=== PATIENT | female | born 1965 | race Two or more races ===

== ENCOUNTER 2019-10-13 06:18 | Outpatient (CLI) | payer OTHER | END 2019-10-13 06:22 | disposition home or self-care (01) | LOC: LAB 06:18 | DX: D50.8 Other iron deficiency anemias (principal); E03.8 Other specified hypothyroidism; E78.2 Mixed hyperlipidemia; N95.1 Menopausal and female climacteric states; N91.2 Amenorrhea, unspecified; E06.3 Autoimmune thyroiditis; E55.9 Vitamin D deficiency, unspecified ==

== ENCOUNTER 2019-10-13 07:44 | Outpatient (CLI) | payer OTHER | END 2019-10-13 07:58 | disposition home or self-care (01) | LOC: MAMO-SONO 07:44 | DX: Z12.31 Encounter for screening mammogram for malignant neoplasm of breast (principal); Z87.898 Personal history of other specified conditions; N60.11 Diffuse cystic mastopathy of right breast; N60.12 Diffuse cystic mastopathy of left breast ==

== ENCOUNTER 2019-12-26 07:52 | Outpatient (CLI) | payer OTHER | END 2019-12-26 08:53 | disposition home or self-care (01) | LOC: SONOGRAMA 07:52 | DX: E04.2 Nontoxic multinodular goiter (principal) ==

== ENCOUNTER 2020-02-13 05:35 | Day surgery (SDC) | payer OTHER ==
[~2020-02-13 05:35] MED LIST: ATACAND32 MG PO
[2020-02-13] MEDS ORDERED: IBU600 MG PO (10:33)
== END 2020-02-13 16:20 | disposition home or self-care (01) ==
LOC: CIR.AMB 05:35 → ADM 10:15 → CIR.AMB 16:20
PROVIDERS: ATTEND Obstetrics & Gynecology Gynecology
DX: N84.0 Polyp of corpus uteri (principal)

== ENCOUNTER 2022-06-02 06:00 | Day surgery (SDC) | payer OTHER ==
[~2022-06-02] VITALS: Ht 160 cm; Wt 72.6 kg
[~2022-06-02 06:00] MED LIST changes: +IBU600 MG PO; +SYMBICORT 16010.2 GM IH; +VENTO
[2022-06-02] MEDS ORDERED: IBU600 MG PO (10:07)
== END 2022-06-02 17:10 | disposition home or self-care (01) ==
LOC: CIR.AMB 06:00
PROVIDERS: ATTEND Obstetrics & Gynecology Gynecology
DX: N84.0 Polyp of corpus uteri (principal); Z20.822 Contact with and (suspected) exposure to COVID-19; I10 Essential (primary) hypertension; E78.5 Hyperlipidemia, unspecified; J45.909 Unspecified asthma, uncomplicated